=== PATIENT | male | born 1950 | race Caucasian/White ===

== ENCOUNTER 2020-07-21 02:04 | Outpatient (CLI) | payer MEDICARE, SELFPAY ==
[2020-07-21 18:46] LABS: SARS-CoV-2 RNA PCR Negative
== END 2020-07-21 02:05 | disposition home or self-care (01) ==
LOC: ANHCOVIDDT 02:04
PROVIDERS: Visit Provider Internal Medicine Gastroenterology
DX: Z01.818 Encounter for other preprocedural examination (principal); Z20.828 Contact with and (suspected) exposure to other viral communicable diseases
CPT/HCPCS: 87635; C9803; U0003

== ENCOUNTER 2020-07-24 01:31 | Day surgery (SDC) | payer MEDICARE, SELFPAY ==
[2020-07-17 11:15] VITALS: BMI 25.2
[2020-07-24 12:08] VITALS: BP 147/77; PULSE 85; RESP 16; TEMP 36.3; O2SAT 99
[2020-07-24] MEDS: LACTATED RINGERS 1,000 ML 150 ML IV CONT (12:15)
--- NOTE | 2020-07-24 12:31 | PM.IMHP ---
H&P: HPI History of Present Illness Date/Time: 07/24/20 12:31 Chief complaint: Neoplasm Screening Narrative: Reason for visit screening colonoscopy. Impression: Screening colonoscopy. Anxiety Gout. Recommendation: Colonoscopy. History: This very pleasant gentleman is here for screening colonoscopy. GI review systems negative. Physical examination: General: very pleasant patient in no acute distress. HEENT: Head was normocephalic sclerae is clear mouth without masses neck was supple. Heart: Rate rhythm regular without S3 or S4. Lungs: CTA. Abdomen: Soft with no guarding or rigidity. Bowel sounds were active. Neurologic: Cranial nerves 2 through 12 intact. No focal defects. No clonus. Musculoskeletal system: Revealed no joint tenderness or swelling no muscle atrophy. Extremities: Reveal no significant edema. Skin: Warm and dry with normal turgor. Mental status: intact. Patient is alert and oriented. Review of Systems Review of Systems: All systems reviewed & are unremarkable except as noted in HPI and below PMFSH Family History Family History (Updated 06/08/18 @ 14:21 by DOCTOR UNKNOWN) Mother Family history of glaucoma Family history of Alzheimer's disease Grandparent Acute myocardial infarction Father Family history of dementia Social History Social History Years smoked: 20 Smoking status: Former smoker Tobacco type: cigarettes Second hand tobacco smoke exposure: No Smoking end date: 08/11/97 Alcohol intake: current Drinks per week: 12 Alcohol use details: BEER Substance use: never Substance use type: does not use Living arrangements: with family Spiritual care concerns: No Meds Home Medications and Allergies Home Medications Medication Instructions Recorded Confirmed Type allopurinol 300 mg PO DAILY 07/17/20 07/17/20 History lorazepam 2 mg PO BID PRN 07/17/20 07/17/20 History sildenafil (pulm.hypertension) 20 mg PO DAILY PRN 07/17/20 07/17/20 History Allergies Allergy/AdvReac Type Severity Reaction Status Date / Time clarithromycin Allergy Unknown Unknown Verified 07/24/20 12:07 indomethacin Allergy Unknown Unknown Verified 07/24/20 12:07 MUSCLE RELAXANT Allergy Severe COULDN'T Uncoded 07/17/20 11:12 MOVE HAD TO CONTER ACT IT WITH BENADRYL Vital Signs Vital Signs - 24 hr 07/24/20 12:08 Temperature 36.3 C L Pulse Rate 85 Respiratory Rate 16 Blood Pressure 147/77 H Pulse Oximetry 99
--- NOTE | 2020-07-24 12:41 | WPDANESEPPF ---
Anes - Initial Pre Proc Eval Procedure: Operation Date: 07/24/20 13:30 Proposed Procedures p Screening Colonoscopy - Sergio Dumont DO Date/Time: 07/24/20 12:41 Surgeon: Sergio Dumont DO Pre Op Diagnosis: Neoplasm Screening Patient Data Age: 70 Gender: M Height: 5 ft 10 in Weight: 78.3 kg Last Vital Signs Temp 36.3 C L 07/24/20 12:08 Pulse 85 07/24/20 12:08 Resp 16 07/24/20 12:08 BP 147/77 H 07/24/20 12:08 Pulse Ox 99 07/24/20 12:08 Allergies Allergy/AdvReac Type Severity Reaction Status Date / Time clarithromycin Allergy Unknown Unknown Verified 07/24/20 12:07 indomethacin Allergy Unknown Unknown Verified 07/24/20 12:07 MUSCLE RELAXANT Allergy Severe COULDN'T Uncoded 07/17/20 11:12 MOVE HAD TO CONTER ACT IT WITH BENADRYL Home Medications Medication Instructions Recorded Confirmed Type allopurinol 300 mg PO DAILY 07/17/20 07/17/20 History lorazepam 2 mg PO BID PRN 07/17/20 07/17/20 History sildenafil (pulm.hypertension) 20 mg PO DAILY PRN 07/17/20 07/17/20 History Patient hx anesthesia problems: none Family hx anesthesia problems: none PMFSH Past Medical History Medical History (Updated 07/24/20 @ 12:42 by Leandro Mosley MD) Anxiety Back pain Gout Surgical History Surgical History (Updated 07/24/20 @ 12:43 by Leandro Mosley MD) History of lumbar fusion Family History Family History (Updated 06/08/18 @ 14:21 by DOCTOR UNKNOWN) Mother Family history of glaucoma Family history of Alzheimer's disease Grandparent Acute myocardial infarction Father Family history of dementia Social History Social History Years smoked: 20 Smoking status: Former smoker Tobacco type: cigarettes Second hand tobacco smoke exposure: No Smoking end date: 08/11/97 Alcohol intake: current Drinks per week: 12 Alcohol use details: BEER Substance use: never Substance use type: does not use Living arrangements: with family Spiritual care concerns: No Anes - Eval Final PreProcedure Day of Procedure 07/24/20 12:41 Patient weight: normal Heart: regular rate and rhythm Lungs: clear to auscultation Airway: Mallampati scale class II Neurological: alert and oriented Last oral intake: >/= 8 hours ASA classification: II Emergent: no Anesthetic plan: proceed Anesthesia type and monitoring: general GIVS and standard monitoring Informed Consent: The patient's anesthetic plan and its attendant risks and benefits were discussed with the patient/family/POA. Questions were solicited and answers provided to the satisfaction of the patient/family/POA.
[2020-07-24 13:21] VITALS: BP 108/64; PULSE 60; RESP 18; O2SAT 99
[2020-07-24 13:31] VITALS: BP 115/65; PULSE 58; RESP 22; O2SAT 99
[2020-07-24 13:41] VITALS: BP 136/65; PULSE 56; RESP 19; O2SAT 98
== END 2020-07-24 13:53 | disposition home or self-care (01) ==
PROVIDERS: Visit Provider Internal Medicine Gastroenterology
PROC: 0DJD8ZZ Inspection of Lower Intestinal Tract, Via Natural or Artificial Opening Endoscopic (ICD-10-PCS; CPT 45378; principal; 2020-07-24 13:30)
DX: Z12.11 Encounter for screening for malignant neoplasm of colon (principal); D12.4 Benign neoplasm of descending colon; K63.5 Polyp of colon; F41.9 Anxiety disorder, unspecified; M10.9 Gout, unspecified; Z87.891 Personal history of nicotine dependence
CPT/HCPCS: 45380; 88305; J2704; J7120

== ENCOUNTER 2022-01-22 09:14 | Emergency (ER) | payer MEDICARE, SELFPAY ==
[2022-01-22] VITALS (9 sets, daily range): BP systolic 144–187; BP diastolic 63–79; PULSE 47–70; RESP 14–19; TEMP 37.2; O2SAT 99–100
--- NOTE | ~2022-01-22 | XR_ITS ---
EXAMINATION: XR chest 1V portable DATE: 01/22/2022 10:01 INDICATION: Chest pain and 2 days of confusion TECHNIQUE: Portable upright AP view of the chest was obtained. COMPARISON: Chest radiograph dated 10/19/08 FINDINGS: The lungs remain clear with no focal airspace opacities, pulmonary edema, pleural effusion or pneumot horax. The cardiomediastinal silhouette is normal. Mild upper thoracic levocurvature. IMPRESSION: 1. No acute cardiopulmonary disease. Reviewed, dictated and finalized at location A.
--- NOTE | ~2022-01-22 | CT_ITS ---
EXAMINATION: CTA BRAIN/CAROTID DATE: 01/22/2022 10:51 INDICATION: 2 days of dizziness TECHNIQUE: Computed tomographic angiography (CTA) of the head and neck was performed with 100 mL Omni paque-300 intravenous contrast. Multiplanar reconstructions and maximum intensity projection 3D-recon structions of the carotid arteries and of the intracranial arteries were created by the technologist on a separate workstation. Precontrast CT of the head was also obtained. Automated exposure control and iterative reconstruction technique were employed.The dose-length product was 1809.59 mGy-cm. COMPARISON: None. FINDINGS: Carotid arteries: There is no evident atherosclerotic plaque with 0% stenosis of the right carotid bulb relative to nor mal distal artery lumen diameter (NASCET criteria). There is small amount of atherosclerotic plaque w ith 0% stenosis of the left carotid bulb relative to normal distal artery lumen diameter. 50% stenosi s at the origin of the right vertebral artery. Visualized portions of the upper lungs are clear. Visu alized superior mediastinum is unremarkable. Moderate cervical spondylosis. Head: No acute intracranial hemorrhage, acute infarction or abnormal extra axial fluid collection. There is moderate scattered white matter hypoattenuation consistent with chronic small vessel ischemic diseas e. Ventricles are normal and symmetric. No mass/mass effect. No abnormally enhancing brain lesions. T he orbits and mastoid air cells are normal. Mild mucosal thickening the left sphenoid sinus. Intracranial arteries Small amount of atherosclerotic plaque without hemodynamically significant stenosis at the bilateral carotid siphons. There is no hemodynamically significant stenosis in the vertebral, basilar and inter nal carotid arteries. Left vertebral artery is dominant. Codominant. There are no aneurysms identifie d. Both A1 and P1 segments are patent. Cerebral arterial arborization appears symmetric. IMPRESSION: 1. 0% stenosis of the left and right carotid bulbs relative to normal distal artery lumen diameter (N ASCET criteria). 2. Minimal atherosclerotic plaque without significant stenosis at the bilateral carotid siphons. Othe rwise unremarkable cerebral CT angiogram. 3. Mild to moderate scattered white matter hypoattenuation consistent with chronic small vessel ische poncho disease. No acute intracranial process. Reviewed, dictated and finalized at location A. IMPRESSION: 1. 0% stenosis of the left and right carotid bulbs relative to normal distal ar alejandro lumen diameter (NASCET criteria). 2. Minimal atherosclerotic plaque without significant stenosis at the bilateral carotid siphons. Otherwise unremarkable cerebral CT angiogram. 3. Mild to moderate scattered white matter hypoattenuation consistent with coater carbon paper ghislaine small vessel ischemic disease. No acute intracranial process.
--- NOTE | 2022-01-22 09:35 | ECG_ITS ---
Measurements Intervals [place] Rate: 64 P: 115 FL: 162 QRS: 165 QRSD: 102 T: 149 QT: 413 QTc: 428 Interpretive Statements SINUS RHYTHM WITH SINUS ARRHYTHMIA ARM LEADS REVERSED [INVERTED P AND QRS IN I] ATYPICAL ECG NO PREVIOUS ECG AVAILABLE FOR COMPARISON Electronically Signed On 01-22-2022 15:01:44 CDT by Terrence Rashid M.D.
--- NOTE | 2022-01-22 09:48 | ED.DIZZY ---
HPI - Dizziness General Chief Complaint: Dizziness Stated Complaint: dizzy Time Seen by Provider: 01/22/22 09:25 History of Present Illness HPI Narrative: pt says for last 2 nights dizzy and pt has hard time explaining seems anxious as he talks noted worse with movement and some ringing in ears on/off at times no recent f/uri/n/v/d/loc/injury or zambrano or vision chagnes. pt says also feels stressed hard time sleeping also some left shoulder pain says ? slept wrong no injury or back/neuro cahgnes no neck or back pain says some cp with it no sweating ? sob vs anxiety. pt says stresstest yrs ago just had health screening echo, carotids us all ok. states for last 2 days he's been hanging onto fragoso so definitely dizzy with walking but she says he's been very anxious no meds tried. will hold asa until scans done b/c ? neuro vs cardiac vs bleed Related Data Home Medications Medication Instructions Recorded Confirmed allopurinol 300 mg tablet 300 mg PO DAILY 07/17/20 07/17/20 lorazepam 2 mg tablet 2 mg PO BID PRN Anxiety 07/17/20 07/17/20 sildenafil (pulm.hypertension) 20 20 mg PO DAILY PRN Erectile 07/17/20 07/17/20 mg tablet Dysfunction Allergies Allergy/AdvReac Type Severity Reaction Status Date / Time clarithromycin Allergy Unknown Unknown Verified 07/24/20 12:07 indomethacin Allergy Unknown Unknown Verified 07/24/20 12:07 MUSCLE RELAXANT Allergy Severe COULDN'T Uncoded 07/17/20 11:12 MOVE HAD TO CONTER ACT IT WITH BENADRYL Review of Systems Constitutional: Comments: CONSTITUTIONAL: Denies fever, chills, or sweats. EYES: Denies visual changes, redness, or discharge. ENT: Denies rhinorrhea, congestion, sore throat, or otalgia. CARDIOVASCULAR: Denies , palpitations, or edema. mild cp RESPIRATORY: Denies cough or dyspnea. GASTROINTESTINAL: Denies abdominal pain, nausea, vomiting, or diarrhea. GENITOURINARY: Denies dysuria or hematuria. SKIN: Denies rash or itching. MUSCULOSKELETAL: Denies back pain, joint pain, or myalgia. NEUROLOGIC: Denies headache, numbness, or weakness. some dizziness and lt headedness PSYCHIATRIC: Denies anxiety or depression. [facility] Past Medical History Medical History (Updated 01/22/22 @ 13:31 by Jessica Zuleta MD) Anxiety Back pain Gout Surgical History Surgical History (Updated 07/24/20 @ 12:43 by Leandro Mosley MD) History of lumbar fusion Family History Family History (Updated 06/08/18 @ 14:21 by DOCTOR UNKNOWN) Mother Family history of glaucoma Family history of Alzheimer's disease Grandparent Acute myocardial infarction Father Family history of dementia Social History Social History Years smoked: 20 Smoking status: Former smoker Tobacco type: cigarettes Second hand tobacco smoke exposure: No Smoking end date: 08/11/97 Alcohol intake: current Drinks per week: 12 Alcohol use details: BEER Substance use: never Substance use type: does not use Spiritual care concerns: No Exam Const: Other: APPEARANCE: Well appearing, no pain in distress, well-nourished. Head normocephalic atraumtaic. EYES: PERRLA/EOMI, conjunctivae very clear. no nystagmus NOSE: Normal no drainage EARS:TMS clear Chauncey Bae, with good light reflex. THROAT: Pharynx clear, no exudate. NECK: Supple. No adenopathy, no masses. RESPIRATORY: Airway patent, repsirations nonlabored. Clear to auscultation bilaterally, no rales, rhonchi, wheezing. CARDIOVASCULAR: Regular rate and rhythm without murmurs rubs or gallops. ABDOMINAL: Soft, nontender, nondistended, no hepatosplenomegally MUSCULOSKELETAl: Moves all extremities. Strenght/ROM intact, No edema, No calf tenderness. NEURO: Alert. Cranial nerves II through XII intact. no focal deficits SKIN:: Warm, dry. Normal Color PSYCHIATRIC: Normal affect/mood, normal interaction with parents. mild anxiety Course Course Emergency Course: updated pt at
[2022-01-22 09:49] LABS: Basophils Percent Auto 0.1 % (0.2-1.2); Hematocrit 43.2 % (42.0-52.0); Hemoglobin 14.5 g/dL (14.0-18.0); Immature Granulocyte Absolute 0.02 K/mm3 (0.00-0.031); Immature Granulocyte Percent A 0.2 % (0-0.5); Lymphocytes Absolute Auto 0.79 K/mm3 (0.9-3.2); Lymphocytes Percent Auto 9.1 % (18.3-44.2); Mean Corpuscular HGB Conc 33.6 g/dl (32-36); Mean Corpuscular Hemoglobin 31.3 pg (26-34); Mean Corpuscular Volume 93.1 fl (80-100); Mean Platelet Volume 10.6 fl (7.4-10.4); Monocytes Absolute Auto 0.4 K/mm3 (0.1-0.6); Monocytes Percent Auto 4.4 % (2.6-8.5); Neutrophils Absolute Auto 7.5 K/mm3 (1.3-6.7); Neutrophils Percent Auto 86.2 % (45.5-73.1); Platelet Count Result 209 k/mm3 (150-375); Red Blood Count 4.64 M/mm3 (4.6-6.20); Red Cell Distribution Width 13.9 % (11.5-14.5); White Blood Count 8.7 K/mm3 (4.5-10.0)
[2022-01-22 09:55] LABS: INR 0.9; Prothrombin Time 12.1 Seconds (11.1-14.7)
[2022-01-22 09:56] LABS: Partial Thromboplastin Time 30.7 SECONDS (22.3-36.8)
[2022-01-22] MEDS: diphenhydrAMINE HCl INJ 50 MG/ML VIAL IV PUSH (10:00)
[2022-01-22] MEDS: SODIUM CHLORIDE 0.9% IV 1,000 ML 999 ML IV CONT (10:00)
[2022-01-22] MEDS: MECLIZINE HCL 25 MG TABLET PO (10:00)
[2022-01-22] MEDS: ONDANSETRON INJ 4 MG/2 ML VIAL IV PUSH (10:00)
[2022-01-22 10:03] LABS: Alanine Aminotransferase 24 U/L (6-50); Albumin Level 4.4 g/dL (3.5-5.1); Alkaline Phosphatase 66 U/L (38-126); Anion Gap 7 mmol/L (8-16); Aspartate Amino Transferase 26 U/L (17-59); Blood Urea Nitrogen 12 mg/dL (9-20); Calcium 9.9 mg/dL (8.4-10.2); Carbon Dioxide 23 mmol/L (22-30); Chloride 105 mmol/L (98-107); Estimated CRCL calculation 77 ml/min; Estimated Glomerular Filt Rate > 60; Glucose 119 mg/dL (65-110); Lipase 55 U/L (23-300); Sodium 135 mmol/L (137-145)
[2022-01-22 10:39] LABS: Creatine Kinase 65 U/L (55-170)
[2022-01-22 11:47] LABS: Appearance Urine Clear (Clear); Bilirubin Urine Negative (Negative); Blood Urine Negative (Negative); Color Urine Yellow (Yellow); Glucose Urine UA Negative (Negative); Ketones Urine Negative (Negative); Leukocyte Esterase Ur Negative LEU/UL (Negative); Nitrate Urine Negative (Negative); Protein Urine Negative (Negative); Specific Grav Ur 1.015 (1.001-1.035); Urobilinogen Urine 0.2 mg/dL (<2.0); pH Urine 7.5 (5.0-9.0)
[2022-01-22] MEDS: LORazepam INJ (*CRX) 2 MG/ML VIAL 1 MG IV PUSH (11:47)
[2022-01-22 12:05] LABS: Bacteria Urine Trace /hpf; Mucus Urine Rare /lpf; RBC Urine 0-2 /hpf (0-2); Squamous Epithelial Cell Urine Rare /hpf (Few); WBC Urine 0-3 /hpf
[2022-01-22 12:12] LABS: Add Urine Microscopic? NO
[2022-01-22 12:30] LABS: Troponin I < 0.012 ng/mL (0.000-0.034)
--- NOTE | 2022-01-22 13:19 | PC.NURSE ---
patient ambulated in ED , steady gait, independent with no complaints
== END 2022-01-22 13:50 | disposition home or self-care (01) ==
PROVIDERS: Emergency Provider Emergency Medicine
DX: R42 Dizziness and giddiness (principal); F41.9 Anxiety disorder, unspecified; R00.1 Bradycardia, unspecified; Z98.1 Arthrodesis status; Z87.891 Personal history of nicotine dependence
CPT/HCPCS: 36415; 51701; 70496; 70498; 71045; 80053; 81003; 82550; 83690; 83735; 84484; 85025; 85610; 85730; 93005; 96361; 96374; 96375; 99284; A9270; J1200; J2060; J2405; J7030; Q9967